=== PATIENT | female | born 1945 | race Caucasian/White ===

== ENCOUNTER → 2016-10-09 | Outpatient (CLI) | payer OTHER ==
[2016-10-09 14:41] LABS: CALCIUM 9.6 mg/dL (8.7-10.7); CHOL/HDL RATIO 2.37 RATIO (0-4.0); LDL CHOLESTEROL,CALCULATED 48.2 mg/dL; SERUM ALBUMIN 3.8 g/dL (3.5-4.8)
== END ==
LOC: LAB 08:17
PROVIDERS: ATTEND Physician Assistant Medical
DX: I10 Essential (primary) hypertension (principal); M79.1 Myalgia; E78.5 Hyperlipidemia, unspecified
CPT/HCPCS: 80053; 80061; 82550; 84443